=== PATIENT | female | born 1985 | race Caucasian/White ===

== ENCOUNTER 2023-01-15 12:43 | Emergency (ER) | payer OTHER, BC, SELFPAY ==
[2023-01-15 12:45] VITALS: BP 135/84; PULSE 85; RESP 14; TEMP 36.6; O2SAT 100; BMI 20.7
--- NOTE | 2023-01-15 13:16 | RAD_ITS ---
STUDY: X-RAY - RIGHT TIBIA AND FIBULA REASON FOR EXAM: Female, 37 years old. Pain following injury. TECHNIQUE: 3 view(s) of the tibia and fibula were obtained. COMPARISON: None. FINDINGS: Normal visualized tibia. Normal visualized fibula. Questionable avulsion fracture along the inferior aspect of the patella. The soft tissue structures are unremarkable. RAD/Tibia & Fibula 2 Views IMPRESSION: Questionable avulsion fracture seen on the lateral view of the inferior portion of the patella. Electronically Signed: Dejon Cameron MD at 14:17 EDT ,
--- NOTE | 2023-01-15 13:16 | RAD_ITS ---
STUDY: X-RAY - RIGHT ANKLE REASON FOR EXAM: Female, 37 years old. Pain following injury. TECHNIQUE: 3 view(s) of the ankle. COMPARISON: None. FINDINGS: Normal visualized distal tibia and fibula. Normal medial and lateral malleoli. Normal tibiotalar articulation and ankle mortise. Normal visualized talus and calcaneus. The visualized subtalar, talonavicular, calcaneocuboid and tarsal articulations are normal. The soft tissue structures are unremarkable. RAD/Ankle min 3 Views IMPRESSION: Normal x-ray examination of the ankle. Electronically Signed: Dejon Cameron MD at 14:09 EDT ,
--- NOTE | 2023-01-15 13:18 | EDS_ITS ---
HPI History of Present Illness Chief Complaint: Lower Extremity Injury Narrative Narrative: 37-year-old female past medical history of anxiety presents with injury to her right ankle and lower leg. She states that she was at work, stepping off the last step of the truck, when she felt a pop in her ankle. She now states that her foot feels strange, and she is also having right medial knee pain. She is unable to bear weight. She presents via EMS with right lower leg pain, mainly right medial knee and right medial ankle. She received 50 mcg of fentanyl in route to the hospital. She denies falling or hitting her head, no loss of consciousness, no other injury. [facility] Medical History (Updated 01/15/23 @ 14:30 by Maykel Peter MD) delivery delivered Right shoulder injury Home Medications alprazolam 0.5 mg tablet (Xanax) 0.5 mg PO DAILY PRN Anxiety 01/15/23 [History Last Taken Unknown] escitalopram oxalate 20 mg tablet (Lexapro) 20 mg PO DAILY 01/15/23 [History Last Taken Unknown] ibuprofen 800 mg tablet (IBU) 800 mg PO DAILY PRN SHOULDER PAIN 01/15/23 [History Last Taken Unknown] Allergy/AdvReac Type Severity Reaction Status Date / Time hydromorphone [From Dilaudid] Allergy Shortness Verified 01/15/23 13:23 of breath Social History Smoking Status: Current every day smoker tobacco type: e-cigarettes ROS ROS ED ROS Narrative Constitutional: No fever, no chills. HEENT: No sore throat. No neck pain. No loss of vision. No rhinorrhea. Cardiovascular: No chest pain. No palpitations. No pedal edema. Respiratory: No cough, no shortness of breath. Abdominal: No abdominal pain. No nausea. No vomiting. Genitourinary: No dysuria. No hematuria. Musculoskeletal: No myalgias. Right medial knee and right ankle pain/injury. [place] pop in ankle. Neurologic: No headaches. No dizziness. No lightheadedness. Skin: No rash. No change in color. Psychiatric: No depression. No anxiety. EXAM Physical Exam Narrative Exam Narrative: Afebrile. Vital signs noted. HEENT: Normocephalic. Atraumatic. PERRL, EOMI. Neck soft and supple. No point tenderness or step off. Cardiovascular: Regular rate and rhythm. No murmurs, rubs, or gallops appreciat ed. Respiratory: No tachypnea. Lungs clear to auscultation bilaterally. Gastrointestinal: Abdomen soft, nontender, with normoactive bowel sounds. No rebound or guarding. Neurological: Awake. Alert. Nonfocal, nonlateralizing. Skin: No rash. Normal color. No pallor. Musculoskeletal: No pedal edema. Tenderness to palpation right medial knee. Flexion and extension mechanism intact. Diffuse tenderness to palpation right ankle. No palpable Achilles tendon deficit. No pain at the base of the fifth metatarsal. Palpable dorsalis pedis pulse. Const Vital Signs: 01/15/23 12:45 01/15/23 13:26 Temperature 98 F Temperature Source Temporal Pulse Rate 85 76 Respiratory Rate 14 18 Blood Pressure 135/84 H 135/84 H Blood Pressure Mean 101 101 Pulse Ox 100 Oxygen Delivery Method Room Air Room Air MDM MDM MDM Narrative Medical decision making narrative: Patient was administered another 50 mcg of fentanyl intravenously. X-rays were obtained of the right knee, right tibia and fibula, and right ankle to look for fracture. In the differential is also severe ankle sprain. I reviewed her ankle x-rays and on my interpretation, there is no fracture of the fibula or tibia. Additionally, I interpreted her right knee x-ray and see no acute fracture although there is slight irregularity to the inferior patella. I reviewed the radiology report and there is no evidence of fracture in the right ankle. Additionally, there is questionable avulsion fracture seen on the lateral view of the inferior portion of the patella. Upon repeat examination, she states she does not have pain when pressing on the inferior patella, but after examination she states it feels weird. She will be placed in a knee immobilizer and given crutches. She will also be placed in an Aircast for ankle sprain. At this point in time, she was referred to the now clinic as this is a Workmen's Compensation claim, however her coworker/nurse supervisor is here and they state that they are from the [place] area and will most likely follow-up with their corporate health at [facility]. She will take [id number] analgesics as needed. I feel she can be discharged safely home with follow-up. Return instructions to the emergency department were reviewed. Disposition is discharged home in stable condition. Radiography Diagnostic Testing: Clinical Impression(s) from Imaging Studies Ankle X-Ray 01/15/23 13:16 IMPRESSION: Normal x-ray examination of the ankle. Electronically Signed: Dejon Cameron MD at 14:09 EDT , Tibia/Fibula X-Ray 01/15/23 13:16 IMPRESSION: Questionable avulsion fracture seen on the lateral view of the inferior portion of the patella. Electronically Signed: Dejon Cameron MD at 14:17 EDT , Discharge Plan Triage Chief Complaint: Lower Extremity Injury ED Provider: Maykel Peter Dx/Rx/DC Orders Clinical Impression: Right ankle sprain, Right knee sprain, Avulsion fracture Prescriptions: No Action ibuprofen [IBU] 800 mg tablet 800 mg PO DAILY PRN (Reason: SHOULDER PAIN) Label Comments: as needed alprazolam [Xanax] 0.5 mg tablet 0.5 mg PO DAILY PRN (Reason: Anxiety) Label Comments: as needed escitalopram oxalate [Lexapro] 20 mg Tablet 20 mg PO DAILY Primary Care Provider: YAA HERNÁNDEZ Referrals: Beny Diego MD [[facility] Staff - Active Staff] - 1 Week Care Physician,No Primary [Non-Staff] - Clinic,[facility] [Non-Staff] - 1-2 Days if not improving Activity Restrictions/Additional Instructions: Follow-up with your companies recommended [employer], or whoever will take care of your workman's compensation claim. [id number] analgesics like ibuprofen or Tylenol for pain. Ice and elevation of right lower extremity. Disposition Disposition: Home, Self Care
[2023-01-15 13:26] VITALS: BP 135/84; PULSE 76; RESP 18
[2023-01-15] MEDS: fentaNYL 100 MCG/2 ML Ampul 50 MCG IV (13:35)
--- NOTE | 2023-01-15 14:45 | ED.RN ---
Addendum entered by Jessica Haider 01/15/23 14:48: employer: [employer] Original Note: employer present ([phone]) reports employees are to go to [facility] on [facility] for their drug screen. he will pick pt up and take her there on discharge.
--- NOTE | 2023-01-15 14:54 | ED.RN ---
PT GIVEN ADDRESS FOR WORK [employer] [facility]AF[facility] THAT THE EMPLOYER SHARATH SAID WOULD COMPLETE PT DRUG SCREEN.
[2023-01-15 15:03] VITALS: BP 119/69; PULSE 75; RESP 13
[2023-01-15 15:04] VITALS: BP 119/69; PULSE 75; RESP 13
--- NOTE | 2023-01-15 15:06 | ED.RN ---
PT DISCHARGED ON CRUTCHES. PT DEMONSTRATES ABILITY TO USE CRUTCHES. THIS RN ADJUSTED CRUTCHES FOR PT.
== END 2023-01-15 15:06 | disposition home or self-care (01) ==
PROVIDERS: Emergency Provider Emergency Medicine; Visit Provider Emergency Medicine
DX: S93.401A Sprain of unspecified ligament of right ankle, initial encounter (principal); F41.9 Anxiety disorder, unspecified; Y99.0 Civilian activity done for income or pay; F17.210 Nicotine dependence, cigarettes, uncomplicated; Y92.812 Truck as the place of occurrence of the external cause
CPT/HCPCS: 73590; 73610; 99285; A4216